=== PATIENT | female | born 1940 | race Caucasian/White ===

== ENCOUNTER 2021-10-03 10:18 | Inpatient (IN) | payer MEDICARE, OTHER ==
[~2021-10-03] VITALS: Ht 160 cm; Wt 48.0 kg
[~2021-10-03 10:18] MED LIST: AMLO10TA55 PO; ASPI-1450 PO; FAMO20 PO; FENO145T26 PO; GABA-1181 PO; HYDR-4031 PO; HYDR2TAB37 PO; LAMO25TA25 PO; LINA5TAB PO; LORA-192 PO; LURA40TA2 PO; LURA80TA2 PO; METO-391 PO; MULT1CAP32 PO; PROP20TA7 PO; TRAZ-184 PO; TRIH2TAB3 PO; [UNRECOGNIZED DRUG - CODE] PO
[2021-10-03] MEDS ORDERED: VANCOMYCIN HCL 1 GM/D5% WATER 200 ML IV ONE (10:30)
[2021-10-03] MEDS ORDERED: 0.9% SODIUM CHLORIDE 10 ML SYRINGE IVP PRN ×2 (10:30→13:30)
[2021-10-03] MEDS ORDERED: PIPERACILLIN/TAZO 3.375 GM/D5W 50 ML IV ONE ×2 (10:30→20:00)
[2021-10-03] MEDS ORDERED: SODIUM CHLORIDE 0.9% 1,000 ML IV ONE ×2 (10:30→11:45)
[2021-10-03 10:51] LABS: GLUCOMETER DEV NAME(LOC) ERT.5; GLUCOSE,POINT OF CARE 102 MG/DL (70-110)
[2021-10-03 10:56] LABS: HEMATOCRIT 27.8 % (36-46); HEMOGLOBIN 9.2 g/dL (12.0-16.0); MEAN CORPUSCULAR HEMOGLOBIN 38.2 pg (26.0-34.0); MEAN CORPUSCULAR HGB CONC 33.2 G/dL (31.0-37.0); MEAN CORPUSCULAR VOLUME 115 fL (80-100); PLATELET COUNT (AUTO) 42 K/uL (150-450); RED BLOOD CELL COUNT(AUTO) 2.41 MIL/uL (4.00-5.20); RED CELL DISTRIBUTION WIDTH 16.6 % (11.5-14.5)
[2021-10-03 11:06] LABS: COVID AG,FIA SOURCE NASOPHARYNGEAL
[2021-10-03 11:06] LABS: INR 1.1 (0.9-1.1); PROTHROMBIN TIME 11.6 SEC (9.4-11.6)
[2021-10-03 11:11] LABS: B-TYPE NATRIURETIC PEPTIDE 94 pg/mL (0-100)
[2021-10-03 11:13] LABS: APPEARANCE,URINE CLOUDY (CLEAR); BILIRUBIN,URINE NEGATIVE (NEGATIVE); GLUCOSE, URINE (UA) NEGATIVE (NEGATIVE); KETONES,URINE TRACE mg/dL (NEGATIVE); LEUKOCYTE ESTERASE ,URINE TRACE (NEGATIVE); NITRATE,URINE NEGATIVE (NEGATIVE); OCCULT BLOOD,URINE NEGATIVE (NEGATIVE); PROTEIN,URINE NEGATIVE (NEGATIVE); UROBILINOGEN,URINE 0.2 mg/dL (<=1.0)
[2021-10-03 11:29] LABS: BACTERIA,URINE None Seen /HPF (None Seen); RBC,URINE 0-2 /HPF (0-2); SQUAMOUS EPITHELIAL CELL,UR Few /LPF (None Seen)
[2021-10-03 11:33] LABS: INFLUENZA TYPE A NEGATIVE FOR TYPE A (NEGATIVE); INFLUENZA TYPE B NEGATIVE FOR TYPE B (NEGATIVE)
[2021-10-03 11:35] LABS: ANION GAP 16 mmol/L (8-16); CALCIUM, TOTAL 9.7 mg/dL (8.8-10.5); CARBON DIOXIDE 21 mmol/L (22-29); CHLORIDE 115 mmol/L (98-107); CREATININE 2.22 mg/dL (0.60-1.30); GLOMERULAR FILTR. RATE CALC 21 mL/min (>60); GLUCOSE,RANDOM 100 mg/dL (70-110); POTASSIUM 4.5 mmol/L (3.5-5.1); SODIUM SERUM 152 mmol/L (136-145); UREA NITROGEN, BLOOD 83 mg/dL (7-18)
[2021-10-03 11:41] LABS: LACTIC ACID 7.3 mmol/L (0.4-2.0)
[2021-10-03 11:44] LABS: BAND NEUTROPHILS % (MANUAL) 8 % (0-5); CORRECTED WHITE BLOOD COUNT 1.7 K/uL (4.5-11.0); LYMPHOCYTES % (MANUAL) 50 % (22-44); MONOCYTES % (MANUAL) 13 % (2-9); SEGMENTED NEUTROPHILS % 29 % (40-70)
[2021-10-03 11:46] LABS: ALANINE AMINOTRANSFERASE 33 U/L (12-78); ALBUMIN 1.8 g/dL (3.4-5.0); ALKALINE PHOSPHATASE 144 U/L (46-116); ASPARTATE AMINOTRANSFERASE 26 U/L (15-37); BILIRUBIN,TOTAL 0.5 mg/dL (0.1-1.0); CREATINE KINASE, TOTAL ONLY 36 U/L (26-192); THYROID STIMULATING HORMONE 0.21 uIU/mL (0.36-3.74)
[2021-10-03] MEDS ORDERED: SODIUM CHLORIDE 0.9% 2,200 ML IV ONE (12:15)
[2021-10-03] MEDS ORDERED: SODIUM CHLORIDE 0.9% 1,400 ML IV ONE (12:15)
[2021-10-03] MEDS ORDERED: ONDANSETRON HCL 4 MG/2 ML VIAL IVP PRN ×2 (13:30→19:45)
[2021-10-03] MEDS ORDERED: ACETAMINOPHEN 325 MG TABLET PO PRN ×2 (13:30→19:45)
[2021-10-03] MEDS: NOREPINEPHRINE 4 MG/D5%-WATER 250 ML IV PRN ×2 (19:00→23:00)
[2021-10-03] MEDS ORDERED: RINGERS SOLUTION,LACTATED 1,000 ML IV SCH (19:30)
[2021-10-03] MEDS ORDERED: SODIUM CHLORIDE 0.45% 1,000 ML IV SCH (19:45)
[2021-10-03] MEDS ORDERED: BISACODYL 10 MG RECTAL RECTAL SUPPOSITORY PR PRN (19:45)
[2021-10-03] MEDS ORDERED: IPRATROPIUM BROMIDE 0.5 MG/2.5 ML NEB SOLUTION NEB PRN (19:45)
[2021-10-03] MEDS ORDERED: ZOLPIDEM TARTRATE 5 MG TABLET PO PRN (19:45)
[2021-10-03] MEDS ORDERED: ALBUTEROL SULFATE 2.5 MG/0.5 ML NEB SOLUTION NEB PRN (19:45)
[2021-10-03] MEDS ORDERED: MAGNESIUM HYDROXIDE SUSPENSION 30 ML UDCUP PO PRN (19:45)
[2021-10-03 20:00] VITALS: BP_SYST 84
[2021-10-03] MEDS ORDERED: PHENYLEPHRINE HCL IN 0.9% NACL 400 MCG/10 ML SYRINGE IVP ONE ×2 (20:01→22:00)
[2021-10-03] MEDS: PHENYLEPHRINE 200 MG/D5%-WATER 250 ML IV PRN ×2 (20:32→22:06)
[2021-10-03] MEDS ORDERED: DOCUSATE SODIUM 100 MG CAPSULE PO SCH (21:00)
[2021-10-03 21:25] LABS: ABG BASE EXCESS -14.9 mmol/L (-2.0-3.0); ABG CARBOXYHEMOGLOBIN 0.3 % (0.0-1.5); ABG HCO3 13.6 mmol/L (22.0-26.0); ABG METHEMOGLOBIN 0.8 % (0.0-1.5); ABG OXYGEN CONTENT 9.8 mL/dL (15.0-23.0); ABG OXYGEN SATURATION 94.5 % (95.0-98.0); ABG OXYHEMOGLOBIN 93.5 % (94.0-100.0); ABG PCO2 22 mmHg (35-45); ABG TOTAL HEMOGLOBIN 7.3 G/dL (12.0-18.0); PO2, ARTERIAL BG 71.7 mmHg (75.0-83.0); SITE, BLOOD GAS RT FEMORAL; SOURCE, BLOOD GAS ARTERIAL; TEMPERATURE, FAHRENHEIT, BG 91.5 FAHREN (96.0-98.6)
[2021-10-03 21:26] LABS: O2 DEVICE,BLOOD GAS NRB (ROOM AIR)
[2021-10-03 21:35] LABS: FREE T4 (FREE THYROXINE) 1.34 ng/dL (0.76-1.46)
[2021-10-03 21:43] LABS: HEMATOCRIT 21.7 % (36-46); MEAN CORPUSCULAR HEMOGLOBIN 37.5 pg (26.0-34.0); MEAN CORPUSCULAR HGB CONC 32.2 G/dL (31.0-37.0); MEAN CORPUSCULAR VOLUME 117 fL (80-100); PLATELET COUNT (AUTO) 45 K/uL (150-450); RED BLOOD CELL COUNT(AUTO) 1.86 MIL/uL (4.00-5.20); RED CELL DISTRIBUTION WIDTH 17.4 % (11.5-14.5)
[2021-10-03 21:45] LABS: CALCIUM, TOTAL 7.4 mg/dL (8.8-10.5); CREATININE 1.85 mg/dL (0.60-1.30); POTASSIUM 4.3 mmol/L (3.5-5.1)
[2021-10-03 21:51] LABS: ALBUMIN 1.2 g/dL (3.4-5.0); BILIRUBIN,TOTAL 0.4 mg/dL (0.1-1.0); TOTAL PROTEIN, SERUM 4.4 g/dL (6.4-8.2)
[2021-10-03 22:00] VITALS: BP_SYST 84
[2021-10-03 22:20] LABS: BAND NEUTROPHILS % (MANUAL) 54 % (0-5); CORRECTED WHITE BLOOD COUNT 2.7 K/uL (4.5-11.0); LYMPHOCYTES % (MANUAL) 12 % (22-44); METAMYELOCYTES % 1 % (0-0); MONOCYTES % (MANUAL) 7 % (2-9); MYELOCYTES % 3 % (0-0); SEGMENTED NEUTROPHILS % 23 % (40-70)
[2021-10-04] VITALS: BP 80/50
[2021-10-04] MEDS ORDERED: VASOPRESSIN 40 UNITS in DEXTROSE 5%-WATER 98 ML IV PRN ×2
[2021-10-04] MEDS ORDERED: HEPARIN SODIUM,PORCINE 5,000 UNITS/ML VIAL SQ SCH
[2021-10-04] MEDS ORDERED: DOPamine 400MG/D5W[STANDARD] 250 ML IV ONE (00:59)
[2021-10-04] MEDS ORDERED: DOPamine 400MG/D5W[STANDARD] 250 ML IV PRN (01:00)
[2021-10-04 02:00] VITALS: BP_SYST 83
[2021-10-04 04:00] VITALS: BP_SYST 94
[2021-10-04] MEDS ORDERED: RAPID SEQUENCE KIT [RSI] 1 EACH KIT MISC ONE (04:41)
[2021-10-04 04:49] LABS: SOURCE, BLOOD GAS ARTERIAL; TEMPERATURE, FAHRENHEIT, BG 98.8 FAHREN (96.0-98.6)
[2021-10-04] MEDS ORDERED: PIPERACILLIN SODIUM/TAZOBACTAM 2.25 GM in DEXTROSE 5%-WATER 50 ML IV SCH (05:00)
[2021-10-04 05:06] LABS: ABG CARBOXYHEMOGLOBIN 0.7 % (0.0-1.5); ABG HCO3 14.1 mmol/L (22.0-26.0); ABG OXYGEN CONTENT 9.4 mL/dL (15.0-23.0); ABG OXYGEN SATURATION 88.4 % (95.0-98.0); ABG OXYHEMOGLOBIN 87.8 % (94.0-100.0); ABG PCO2 28 mmHg (35-45); ABG PH 7.276 (7.35-7.450); PO2, ARTERIAL BG 66.2 mmHg (75.0-83.0)
[2021-10-04] MEDS: EPINEPHrine 2 MG in DEXTROSE 5%-WATER 248 ML IV PRN ×2 (05:10→06:35)
[2021-10-04 05:12] LABS: ALBUMIN 1.2 g/dL (3.4-5.0); BILIRUBIN,TOTAL 0.4 mg/dL (0.1-1.0); CALCIUM, TOTAL 7.7 mg/dL (8.8-10.5); CHOL/HDL RATIO 1.5 (3.9-5.7); CREATININE 2.01 mg/dL (0.60-1.30); POTASSIUM 4.9 mmol/L (3.5-5.1); TOTAL PROTEIN, SERUM 4.6 g/dL (6.4-8.2)
[2021-10-04 05:12] LABS: ABG TOTAL HEMOGLOBIN 7.5 G/dL (12.0-18.0)
[2021-10-04 05:13] LABS: O2 DEVICE,BLOOD GAS NRB (ROOM AIR)
[2021-10-04 05:14] LABS: HEMOGLOBIN 7.2 g/dL (12.0-16.0); MEAN CORPUSCULAR HGB CONC 32.7 G/dL (31.0-37.0); MEAN CORPUSCULAR VOLUME 116 fL (80-100); PLATELET COUNT (AUTO) 44 K/uL (150-450); RED BLOOD CELL COUNT(AUTO) 1.89 MIL/uL (4.00-5.20); RED CELL DISTRIBUTION WIDTH 16.8 % (11.5-14.5)
[2021-10-04 05:14] LABS: SITE, BLOOD GAS RT RADIAL
[2021-10-04 05:20] LABS: CORRECTED WHITE BLOOD COUNT 2.9 K/uL (4.5-11.0)
[2021-10-04 05:22] LABS: SEGMENTED NEUTROPHILS % 36 % (40-70)
[2021-10-04 05:23] LABS: BAND NEUTROPHILS % (MANUAL) 49 % (0-5); LYMPHOCYTES % (MANUAL) 6 % (22-44); METAMYELOCYTES % 2 % (0-0); MONOCYTES % (MANUAL) 4 % (2-9); MYELOCYTES % 3 % (0-0)
[2021-10-04] MEDS ORDERED: SODIUM BICARBONATE IV SCH (05:30)
[2021-10-04] MEDS ORDERED: RINGERS LACTATED IV SCH (05:30)
[2021-10-04] MEDS ORDERED: SODIUM BICARBONATE IV STA (05:39)
[2021-10-04] MEDS ORDERED: RINGERS LACTATED IV STA (05:39)
[2021-10-04] MEDS: NOREPINEPHRINE 4 MG/D5%-WATER 250 ML IV PRN (05:50)
[2021-10-04] MEDS: PHENYLEPHRINE 200 MG/D5%-WATER 250 ML IV PRN (05:50)
[2021-10-04 06:00] VITALS: BP_SYST 88
[2021-10-04 08:00] VITALS: BP_SYST 102; BP_SYST 103; BP_DIAS 72; BP_DIAS 82
[2021-10-04] MEDS ORDERED: MORPHINE SULFATE 100 MG/NS/PF 100 ML IV PRN (08:30)
[2021-10-04] MEDS ORDERED: ONDANSETRON HCL 4 MG/2 ML VIAL IVP PRN (08:30)
[2021-10-04] MEDS ORDERED: DiphenhydrAMINE HCL 50 MG/ML VIAL IVP PRN (08:30)
[2021-10-04] MEDS ORDERED: PANTOPRAZOLE SODIUM 40 MG/VIAL IVP SCH (09:00)
[2021-10-04 10:00] VITALS: BP 92/33
[2021-10-04] MEDS ORDERED: EPINEPHrine 1:10,000 [1 MG/10 ML] SYRINGE IVP ONE (12:39)
[2021-10-05] MEDS ORDERED: VANCOMYCIN HCL 750 MG in DEXTROSE 5%-WATER 250 ML IV SCH (08:00)
== END 2021-10-04 12:40 | DRG 871 ==
LOC: EMS 10:22 → ICU 18:28
PROVIDERS: ADMIT Hospitalist; ATTEND Hospitalist
PROC: 06HY33Z Insertion of Infusion Device into Lower Vein, Percutaneous Approach (ICD-10-PCS; principal; 2021-10-03)
PROC: B54BZZA Ultrasonography of Right Lower Extremity Veins, Guidance (ICD-10-PCS; 2021-10-03)
DX: A41.9 Sepsis, unspecified organism (principal); E43 Unspecified severe protein-calorie malnutrition; J69.0 Pneumonitis due to inhalation of food and vomit; R65.21 Severe sepsis with septic shock; D61.818 Other pancytopenia; E87.0 Hyperosmolality and hypernatremia; G93.40 Encephalopathy, unspecified; N17.9 Acute kidney failure, unspecified; Z68.1 Body mass index [BMI] 19.9 or less, adult; E03.9 Hypothyroidism, unspecified; E11.9 Type 2 diabetes mellitus without complications; E78.00 Pure hypercholesterolemia, unspecified; I10 Essential (primary) hypertension; F31.9 Bipolar disorder, unspecified; Z20.822 Contact with and (suspected) exposure to COVID-19; R68.0 Hypothermia, not associated with low environmental temperature; E05.90 Thyrotoxicosis, unspecified without thyrotoxic crisis or storm; J98.2 Interstitial emphysema; Z82.49 Family history of ischemic heart disease and other diseases of the circulatory system; Z83.3 Family history of diabetes mellitus; Z88.5 Allergy status to narcotic agent
CPT/HCPCS: 36600; 70450; 71045; 71250; 72192; 74150; 80053; 80061; 81001; 82550; 82805; 82962; 83605; 83880; 84439; 84443; 84484; 85025; 85610; 87040; 87077; 87081; 87205; 87804; 93005; 93306; 99285; G0378; J0171; J1265; J1644; J2270; J2370; J2543; J3370; J3490; J7030; J7060; J7120; Q9967; 36415-L1; 36415-TC; U0003